=== PATIENT | male | born 1985 | race Caucasian/White ===

== ENCOUNTER 2020-01-27 04:58 | Emergency (ER) | payer SELFPAY ==
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
[2020-01-27 05:02] VITALS: BP 129/89; PULSE 98; RESP 17; TEMP 36.4; O2SAT 96; BMI 22.4
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
[2020-01-27] MEDS: HYDROcodone-acetaminophen 7.5-325 mg Tablet 1 TAB PO (05:22)
[2020-01-27] MEDS: tetanus-dipt-pertussis 0.5 mL SDV IM (05:22)
== END 2020-01-27 05:27 | disposition home or self-care (01) ==
PROVIDERS: Emergency Provider Emergency Medicine; PCP Nurse Practitioner
DX: S61.412A Laceration without foreign body of left hand, initial encounter (principal); W26.8XXA Contact with other sharp object(s), not elsewhere classified, initial encounter; F17.210 Nicotine dependence, cigarettes, uncomplicated; Z23 Encounter for immunization
CPT/HCPCS: 12345; 73130; 90471; 90715; 99281; 99283

== ENCOUNTER → 2020-06-07 13:12 | Outpatient (BNVA) | payer OTHER, SELFPAY | PROVIDERS: PCP Nurse Practitioner; Visit Provider Nurse Practitioner Psychiatric/Mental Health | DX: Z79.899 Other long term (current) drug therapy (principal) | CPT/HCPCS: 80307 ==